=== PATIENT | male | born 1980 | race African-American/Black ===

== ENCOUNTER 2018-06-17 08:11 | Emergency (ER) | payer OTHER ==
[~2018-06-17] VITALS: Ht 177.8 cm; Wt 90.7 kg
[~2018-06-17 08:11] MED LIST: DOXYCYCLINE 10100 MG PO; NAPROXEN 500MG500 M1 PO; XYZAL5 MG PO; ZPAK PO
[2018-06-17] MEDS ORDERED: GENVOYA TABLET1 EACH PO (08:24)
[2018-06-17] MEDS ORDERED: BACTRIM DS TAB1 EACH PO (08:40)
[2018-06-17] MEDS ORDERED: HIBICLENS118 ML TOP (08:52)
[2018-06-17] MEDS ORDERED: MUPIROCIN22 GM NASAL (08:54)
[2018-06-17 09:06] VITALS: BP 133/80
== END 2018-06-17 09:07 | disposition home or self-care (01) ==
LOC: ER 08:11
DX: L02.215 Cutaneous abscess of perineum (principal); Z88.6 Allergy status to analgesic agent; Z88.2 Allergy status to sulfonamides; Z88.8 Allergy status to other drugs, medicaments and biological substances; Z21 Asymptomatic human immunodeficiency virus [HIV] infection status

== ENCOUNTER 2020-09-18 22:11 | Emergency (ER) | payer OTHER ==
[~2020-09-18] VITALS: Ht 170.2 cm; Wt 72.6 kg
[~2020-09-18 22:11] MED LIST changes: +BACTRIM DS TAB1 EACH PO; +GENVOYA TABLET1 EACH PO; +HIBICLENS118 ML TOP; +MUPIROCIN22 GM NASAL
[2020-09-18 22:22] VITALS: BP 160/108
[2020-09-18] MEDS ORDERED: DOXYCYCLINE 10100 MG PO (23:02)
== END 2020-09-18 23:06 | disposition home or self-care (01) ==
LOC: ER 22:11
DX: L02.215 Cutaneous abscess of perineum (principal); B20 Human immunodeficiency virus [HIV] disease; Z79.899 Other long term (current) drug therapy; Z88.2 Allergy status to sulfonamides; Z88.1 Allergy status to other antibiotic agents; Z88.6 Allergy status to analgesic agent

== ENCOUNTER 2021-01-26 08:43 | Emergency (ER) | payer OTHER ==
[~2021-01-26] VITALS: Ht 177.8 cm; Wt 88.0 kg
[2021-01-26 08:43] VITALS: BP 150/100
[2021-01-26] MEDS ORDERED: NORCO5 PO (12:36)
[2021-01-26] MEDS ORDERED: BACTRIM DS TAB1 EACH PO (12:36)
== END 2021-01-26 12:55 | disposition home or self-care (01) ==
LOC: ER 08:43
DX: K61.0 Anal abscess (principal); Z21 Asymptomatic human immunodeficiency virus [HIV] infection status; Z79.891 Long term (current) use of opiate analgesic; Z79.899 Other long term (current) drug therapy; Z88.2 Allergy status to sulfonamides; Z88.6 Allergy status to analgesic agent; Z88.8 Allergy status to other drugs, medicaments and biological substances